=== PATIENT | male | born 1980 ===

== ENCOUNTER 2021-12-03 22:37 | Emergency (ER) | payer OTHER ==
[~2021-12-03] VITALS: Ht 177.8 cm; Wt 81.6 kg
[2021-12-03] MEDS ORDERED: TAMS0.4C PO (22:41)
== END 2021-12-03 23:07 | disposition home or self-care (01) ==
LOC: ER 22:37
DX: R22.41 Localized swelling, mass and lump, right lower limb (principal)

== ENCOUNTER 2021-12-04 10:16 | Outpatient (CLI) | payer OTHER | END 2021-12-04 10:35 | disposition home or self-care (01) | LOC: NUCLEAR 10:16 | PROVIDERS: ATTEND General Practice | DX: I87.2 Venous insufficiency (chronic) (peripheral) (principal); I73.9 Peripheral vascular disease, unspecified; R22.41 Localized swelling, mass and lump, right lower limb ==

== ENCOUNTER → 2021-12-04 | Emergency (ER) | payer OTHER ==
[~2021-12-04] MED LIST: TAMS0.4C PO
== END | disposition left against medical advice (07) ==
LOC: ER 07:49
DX: Z53.20 Procedure and treatment not carried out because of patient's decision for unspecified reasons (principal)